=== PATIENT | male | born 1975 | race Caucasian/White ===

== ENCOUNTER 2022-11-18 19:25 | Emergency (ER) | payer BC, SELFPAY ==
--- NOTE | 2022-11-18 19:38 | ED.DENTAL ---
HPI - Dental/Oral General Chief complaint: Dental/Oral Stated complaint: Facial Pain Time Seen by Provider: 11/18/22 19:38 Source: patient Mode of arrival: ambulatory History of Present Illness HPI Narrative: 47-year-old male presented for complaint of facial pain over the last 3 days. He states it feels like a burning sensation just below eyes, in the cheeks on both sides. He has been using Orajel, pushing fluids, and taking Tylenol and ibuprofen. He is scheduled with the dentist tomorrow, stating he has bad teeth. He states this is not dental pain, it is higher up like a sinus infection. Endorses stuffy nose. Denies dizziness, cough, n/v/d/f/c. MD Complaint: tooth pain Related Data Allergies Allergy/AdvReac Type Severity Reaction Status Date / Time No Known Allergies Allergy Verified 11/18/22 19:42 Review of Systems Review of Systems: CONSTITUTIONAL: Denies body aches, fever, chills ENT: Denies rhinorrhea, sore throat, or otalgia. CARDIOVASCULAR: Denies chest pain, palpitations RESPIRATORY: Denies cough or dyspnea. SKIN: Denies rash, itching, or wounds. MUSCULOSKELETAL: Denies myalgia. NEUROLOGIC: Denies headache, numbness, tingling, or weakness. [facility] Past Medical History Medical History (Updated 11/18/22 @ 19:52 by Sierra Richter, RANDY) No pertinent past medical history Comments At time of signature, I have reviewed and agree with nursing past medical, surgical, social and family history unless otherwise noted. Please see nursing chart for further information. There is no relevant family history pertinent to the presenting complaint Exam Narrative: GENERAL: well appearing, no acute distress. HEAD: Normocephalic, atraumatic. EYES: EOMI. No redness or drainage. Conjunctivae normal. ENT: Facial pain reported with light palpation over maxillary sinus. Poor dentition, mostly broken teeth, discolored, cavities throughout.No apparent gum swelling or drainage. Mucous membranes pink and moist. TMs normal bilaterally. Throat normal. Uvula midline. NECK: Normal AROM. No lymphadenopathy. CHEST: No respiratory distress. SKIN: Warm, dry, no rash. Normal skin turgor. NEURO: No focal deficits. Alert and oriented x3. Gait steady. Course Course Emergency Course: Patient is aware of diagnosis, understands and agrees to treatment plan. Anticipatory guidance given. Patient agrees to follow-up as directed and is aware of reasons to seek care at the emergency department. Portions of this record may have been created with voice recognition software Level of Care: Express Care Visit MDM - Dental/Oral MDM Narrative Medical decision making narrative: There are no focal signs of space occupying lesions that are compromising to the airway. No uvular deviation or soft palate edema. Patient is non-toxic appearing. The floor of the mouth is soft with no signs of Aristeo's Angina. Patient is without trismus or drooling and able to swallow secretions. Patient is felt appropriate for discharge home with dental follow up as scheduled. Differential Diagnosis Differential diagnosis: Likely gingival abscess, dental caries, toothache, dental abscess, fracture of tooth, aphthous ulcer and other (sinusitis, allergic rhinitis) Discharge Plan Discharge Clinical Impression: Acute facial pain Patient Disposition: Home, Self-Care Condition: Stable Instructions: Antibiotic Form, Toothache (ED) Additional Instructions: Take antibiotic as directed May apply heat or ice to the face Gentle brushing and flossing. Rinse mouth with warm salt water at least 2 times a day. Alternate Tylenol and ibuprofen as needed for pain Follow-up with the dentist as soon as scheduled--see the list provided Go to the ER for worsening symptoms or concerns Prescriptions: New ibuprofen 800 mg tablet 800 mg PO TID PRN (Reason: pain) Qty: 15 0RF penicillin V potassium 500 mg tablet 500 mg PO Q12H 10 Days Qty: 20 0RF lidoc
[2022-11-18 19:39] VITALS: BP 153/97; PULSE 74; RESP 16; TEMP 36.3; O2SAT 99
== END 2022-11-18 19:51 | disposition home or self-care (01) ==
PROVIDERS: Emergency Provider Nurse Practitioner Family
DX: R51.9 Headache, unspecified (principal)
CPT/HCPCS: 99203; G0463